=== PATIENT | female | born 1940 | race African-American/Black ===

== ENCOUNTER 2021-09-03 05:37 | Observation (INO) ==
[2021-09-03] MEDS ORDERED: methylPREDNISolone SOD SUC 125 MG/2 ML VIAL IV STA (06:21)
[2021-09-03] MEDS ORDERED: FAMOTIDINE 20 MG/2 ML VIAL IV STA (06:21)
[2021-09-03] MEDS ORDERED: methylPREDNISolone SOD SUC 125 MG/2 ML VIAL ONE (06:23)
[2021-09-03] MEDS ORDERED: diphenhydrAMINE 50 MG/1 ML VIAL IV STA (06:25)
[2021-09-03] MEDS ORDERED: diphenhydrAMINE 50 MG/1 ML VIAL ONE (06:26)
[2021-09-03 07:09] LABS: Calcium 9.4 MG/DL (8.5-10.1); Osmolality,Calculated 259.8 MOS/KG (273-304); Potassium 3.3 MMOL/L (3.5-5.1)
[2021-09-03] MEDS ORDERED: ONDANSETRON 4 MG/2 ML VIAL IV PRN (07:45)
[2021-09-03] MEDS ORDERED: MAGNESIUM CHLORIDE 64 MG TABLET PO PRN (07:47)
[2021-09-03] MEDS ORDERED: hydrALAZINE 20 MG/1 ML VIAL IV PRN (07:49)
[2021-09-03] MEDS ORDERED: metFORMIN 500 MG TABLET PO SCH (08:00)
[2021-09-03 08:16] VITALS: BP 152/102
[2021-09-03 08:22] LABS: Basophils % 0.4 % (0.0-0.8); Eosinophils # 0.1 10*3/uL (0.0-0.87); Hematocrit 35.5 VOL% (35.7-47.0); Hemoglobin 12.2 GM/DL (12.0-16.0); Immature Granulocytes % 0.2 %; Immature Granulocytes Absolute 0.01 #; Lymphocytes # 1.2 10*3/uL (1.4-4.0); Mean Corpuscular HGB Conc 34.4 GM/DL (32-36); Mean Corpuscular Volume 92.2 FL (87-102); Monocytes % 4.2 % (1.7-12.7); Neutrophils % 69.2 % (38.7-73.9); Platelet Count 288 T/CUMM (130-400); Red Blood Count 3.85 MC/CUMM (3.8-5.5); Red Cell Distribution Width 11.9 % (9.3-17.3)
[2021-09-03] MEDS ORDERED: MULTIVITAMIN (CENTRUM) TABLET PO SCH (09:00)
[2021-09-03] MEDS ORDERED: hydroCHLOROthiazide 25 MG TABLET PO SCH (09:00)
[2021-09-03] MEDS ORDERED: carvediloL 3.125 MG TABLET PO SCH (09:00)
[2021-09-03] MEDS ORDERED: cloNIDine 0.1 MG TABLET PO SCH (09:00)
[2021-09-03] MEDS: ALPRAZolam 0.5 MG TABLET PO SCH ×2 (09:33→13:45)
[2021-09-03] MEDS ORDERED: methylPREDNISolone SOD SUC 40 MG/1 ML VIAL IV SCH (14:00)
[2021-09-03] MEDS ORDERED: FAMOTIDINE 20 MG/2 ML VIAL IV SCH (18:00)
[2021-09-03] MEDS ORDERED: ALPRAZolam 0.25 MG TABLET PO SCH (21:00)
== END 2021-09-03 18:35 | disposition home or self-care (01) ==
LOC: N.ED 05:37 → N.EDINP 05:37 → N.ICU 08:22
PROVIDERS: ADMIT Family Medicine; ATTEND Family Medicine